=== PATIENT | female | born 1965 | race Asian ===

== ENCOUNTER 2018-09-25 14:20 | Emergency (ER) | payer BC ==
[~2018-09-25] VITALS: Ht 162.6 cm; Wt 68.0 kg
[2018-09-25 14:26] VITALS: Ht 162.6 cm; Wt 68.0 kg
[2018-09-25 15:06] LABS: PLATELET COUNT 197 x10^3mcL (130-400)
[2018-09-25 15:12] LABS: RED CELL DISTRIBUTION WIDTH 17.3 % (11.5-14.5)
[2018-09-25 15:17] LABS: CALCIUM 8.5 mg/dL (8.5-10.1); CARBON DIOXIDE 23.8 mmol/L (21-32); CHLORIDE SERUM 109 mmol/L (98-107); CREATININE SERUM 0.5 mg/dL (0.6-1.0); GFR1 > 60 mL/min; GLUCOSE SERUM 77 mg/dL (74-106); POTASSIUM SERUM 3.4 mmol/L (3.5-5.1); SODIUM SERUM 146 mmol/L (136-145)
[2018-09-25 15:22] LABS: ALBUMIN 3.5 g/dL (3.4-5.0); ALKALINE PHOSPHATASE 63 U/L (46-116); ALT/SGPT 14 U/L (14-59); AST/SGOT 14 U/L (15-37); BILIRUBIN TOTAL 0.27 mg/dL (0.20-1.00); CHOLESTEROL 192 mg/dL (<200); TOTAL PROTEIN, SERUM 6.4 g/dL (6.4-8.2)
[2018-09-25 15:32] LABS: BAND NEUTROPHIL 0 % (0-10); BASOPHIL 0 % (0-2); MONOCYTE 6 % (0-7); PLATELET MORPHOLOGY PLATELETS NORMAL; SEGMENTED NEUTROPHILS 63 % (37-75); rbc morphology (normal/abnorm) ABNORMAL (NORMAL)
[2018-09-25 16:03] LABS: AMPHETAMINE QUAL UR NONE DETECTED (See below)
[2018-09-25 16:25] VITALS: BP 113/69
== END 2018-09-25 16:25 | disposition home or self-care (01) ==
LOC: ED 14:20
PROVIDERS: Specialist
DX: F10.129 Alcohol abuse with intoxication, unspecified (principal); F32.9 Major depressive disorder, single episode, unspecified; Z91.048 Other nonmedicinal substance allergy status
CPT/HCPCS: G0480; J7030; Q0092

== ENCOUNTER 2019-12-25 08:37 | Emergency (ER) | payer OTHER ==
[~2019-12-25] VITALS: Ht 165.1 cm; Wt 68.0 kg
[2019-12-25 08:41] VITALS: BP 147/96; Ht 165.1 cm; Wt 68.0 kg
== END 2019-12-25 08:53 | disposition other institution (70) ==
LOC: ED 08:37
DX: Z02.89 Encounter for other administrative examinations (principal)

== ENCOUNTER 2020-03-12 01:13 | Inpatient (IN) | payer BC, SELFPAY ==
[~2020-03-12] VITALS: Ht 162.6 cm; Wt 67.7 kg
[2020-03-12 01:20] VITALS: Ht 162.6 cm; Wt 67.7 kg
[2020-03-12 02:14] LABS: BASOPHIL % 0.5 % (0-2); PLATELET COUNT 211 x10^3mcL (130-400); RED CELL DISTRIBUTION WIDTH 17.5 % (11.5-14.5)
[2020-03-12 02:21] LABS: CALCIUM 8.7 mg/dL (8.5-10.1); CARBON DIOXIDE 16.1 mmol/L (21-32); CHLORIDE SERUM 100 mmol/L (98-107); CREATININE SERUM 0.6 mg/dL (0.6-1.0); GFR1 > 60 mL/min; GLUCOSE SERUM 65 mg/dL (74-106); POTASSIUM SERUM 3.9 mmol/L (3.5-5.1); SODIUM SERUM 135 mmol/L (136-145)
[2020-03-12 02:26] LABS: ALBUMIN 3.5 g/dL (3.4-5.0); ALKALINE PHOSPHATASE 83 U/L (46-116); ALT/SGPT 20 U/L (14-59); AST/SGOT 32 U/L (15-37); BILIRUBIN TOTAL 0.32 mg/dL (0.20-1.00); TOTAL PROTEIN, SERUM 6.7 g/dL (6.4-8.2)
--- NOTE | 2020-03-12 05:34 | NUR ---
PT AMB TO BATHROOM W/O DISTRESS, O2 SAT REMAINS @ 97% ACTIVE AND AT REST.
[2020-03-12 05:55] LABS: CHOLESTEROL/HDL RATIO 1.8
--- NOTE | 2020-03-12 06:00 | NUR ---
PT DENIES CHEST PAIN. STATES, "NO CHEST PAIN, JUST A LITTLE TIGHTNESS WHEN I TAKE A BREATH." O2 SAT REMAINS AT 97%
[2020-03-12] MEDS ORDERED: IBU400 M2 PO (06:30)
--- NOTE | 2020-03-12 07:40 | NUR ---
PT WAS ADMITED TO TELE 207B. REPORT WAS CALLED AND GIVEN TO SMITHA. MONTES DE OCA.
--- NOTE | 2020-03-12 08:14 | NUR ---
PT WAS SENT TO TELE.
--- NOTE | 2020-03-12 08:15 | NUR ---
RECEIVED PT FROM ER. PT IS STABLE. ADMISSION ASSESSMENT AND HISTORY DONE. DENIES ANY PAIN. NO SOB THIS TIME. NO DISTRESS ON RA. SAFTEY PRECAUTIONS ARE IN PLACE. WILL MONITOR.
[2020-03-12 09:12] VITALS: BP 141/89
[2020-03-12 12:29] VITALS: BP 141/89
--- NOTE | 2020-03-12 13:00 | NUR ---
INFORMED ABOUT PT'S RHYTHM SR WITH ELEVATED T WAVE. HE CHECKED PT'S EKG AND SAID SHE IS FINE. DENIES ANY PAIN. INFORMED ABOUT PT STATED SHE HAS MILD SORE THROAT, HE SAID TO ORDER THROAT LOZENGELS. PT IS STABLE.
[2020-03-12 13:49] VITALS: BP 124/72; BP 145/86
--- NOTE | 2020-03-12 16:35 | NUR ---
PT RESTING IN BED COMFORTABLY. STABLE. C/O MILD SORE THROAT. CEPACOLE PO GIVEN ORDERED. NO SOB NOTED. WILL MONITOR. DENIES CHEST PAIN THIS TIME.
[2020-03-12 17:24] VITALS: BP 143/82
--- NOTE | 2020-03-12 18:59 | NUR ---
PT REMAINS STABLE. NO SOB NOTED. WILL GIVE REPORT TO SUPERVISOR TRANSFERRING AND BOXING NURSE.
--- NOTE | 2020-03-12 20:00 | NUR ---
PATIENT IS A/O X4. GOOD HISTORIAN. ON TELE 29. NSR. DENIES CHEST PAIN, CHEST PRESSURE, DIZZINESS, PALPITATIONS. NO FACIAL DROOP. SMILE SYMMETRICAL. NO EDEMA NOTED. ON ROOM AIR. LUNG SOUNDS CTA. DENIES SOB. NORMOACTIVE BOWEL SOUNDS X4. DENIES ABD PAIN. VOIDS FREELY. AMBULATORY. SKIN INTACT. DENIES ANY PAIN AT THIS TIME. SHE STATES SHE HAS BEEN ASYMPTOMATIC SINCE SHE HAD RECIEVED ASPIRIN UPON ARRIVAL TO THE ED. NS RUNNING AT 80 MLS/HR. LFA IV CDI. BED IN LOWEST AND LOCKED POSITION. CALL LIGHT WITHIN REACH. WILL CONT TO MONITOR.
--- NOTE | 2020-03-12 20:05 | NUR ---
EDUCATED PATIENT ON PLAN OF CARE PER CARDIO CONSULT AND ABOUT PURPOSE OF GIVING ASPIRIN UPON ARRIVAL TO THE ED.
[2020-03-12 20:28] VITALS: BP 106/61
--- NOTE | 2020-03-12 23:00 | NUR ---
PATIENTS LFA IV WAS DISTENDED AROUND SITE. DURING SALINE FLUSH PATIENT C/O PAIN. D/C IV ON LFA. STARTED NEW IV ON LH 22G. GOOD FLUSH AND BLOOD RETURN. CDI. DENIES PAIN AT SITE. NS RUNNING AT 80 MLS/HR. WILL CONT TO MONITOR.
--- NOTE | 2020-03-13 02:00 | NUR ---
PATIENT RESTING IN BED WITH EYES CLOSED. BREATHING E/U. NO DISTRESS NOTED. WILL CONT TO MONITOR.
[2020-03-13 04:59] VITALS: BP 135/68
--- NOTE | 2020-03-13 06:00 | NUR ---
PATIENT STATES SHE HAS AN UPSET STOMACH. REQUESTED HOT TEA AND CRACKERS. GIVEN REQUESTED. DENIES N/V. DENIES ABD PAIN. WILL CONT TO MONITOR.
[2020-03-13 07:08] LABS: BASOPHIL % 0.4 % (0-2); PLATELET COUNT 171 x10^3mcL (130-400)
[2020-03-13 07:20] LABS: CALCIUM 8.4 mg/dL (8.5-10.1); CARBON DIOXIDE 26.2 mmol/L (21-32); CHLORIDE SERUM 107 mmol/L (98-107); CREATININE SERUM 0.5 mg/dL (0.6-1.0); GFR1 > 60 mL/min; GLUCOSE SERUM 101 mg/dL (74-106); POTASSIUM SERUM 4.1 mmol/L (3.5-5.1); SODIUM SERUM 141 mmol/L (136-145)
--- NOTE | 2020-03-13 07:20 | NUR ---
RECEIVED PT FROM SENIOR QUALITY ENGINEER. ASSESSED AND WILL DOCUMENT. DENIES ANY PAIN. NO SOB NOTED. SAFTEY PRECAUTIONS ARE IN PLACE. WILL MONITOR.
[2020-03-13 07:47] LABS: RED CELL DISTRIBUTION WIDTH 17.7 % (11.5-14.5)
[2020-03-13 08:35] VITALS: BP 142/96
[2020-03-13 12:10] VITALS: BP 139/99
--- NOTE | 2020-03-13 13:00 | NUR ---
PT RESTING IN BED COMFORTABLY, DENIES CHEST PAIN. NO SOB NOTED. STABLE. EATING WELL.
[2020-03-13 13:29] VITALS: BP 139/99
[2020-03-13] MEDS ORDERED: LIPI20 PO ×2 (16:12→19:15)
[2020-03-13] MEDS ORDERED: COR3 PO ×2 (16:12→19:15)
[2020-03-13] MEDS ORDERED: LOSARTAN POTASS25 M1 PO (16:12)
--- NOTE | 2020-03-13 16:15 | NUR ---
CAPACITOR PACK PRESS OPERATOR INFORMED PT EF IS 35% AND SHE INFORMED DR.PALIWAL BALLARD, ALSO AWARE ABOUT EF, HE SAID PT CAN STILL GO HOME. DENIES CHEST PAIN. NO DISTRESS NOTED. WILL DC SOON.
[2020-03-13 17:26] VITALS: BP 141/89
--- NOTE | 2020-03-13 17:30 | NUR ---
DC INSTRUCTIONS GIVEN. PB SIGNED AND SENT WITH PT. IV REMOVED AND DRESSING APPLIED. TELE REMOVED AND RETURNED. NO SOB NOTED, STABLE. DENIES ANY PAIN. NO DIZZINESS NOTED. DISTRICT SALES COORDINATOR WHEELED PT DOWN TO LOBBY. DC HOME.
[2020-03-13] MEDS ORDERED: COZAAR25 M1 PO (19:15)
== END 2020-03-13 18:17 | disposition home or self-care (01) | DRG 203 ==
LOC: ED 01:13 → DU 05:11
PROVIDERS: Emergency Medicine; ADMIT Hospitalist; ATTEND Internal Medicine
DX: J20.9 Acute bronchitis, unspecified (principal); Z20.828 Contact with and (suspected) exposure to other viral communicable diseases; F32.9 Major depressive disorder, single episode, unspecified; Z85.3 Personal history of malignant neoplasm of breast
CPT/HCPCS: 36600; 85378; G0378; J1650; J7030; Q9967; U0003